=== PATIENT | female | born 1930 | race Caucasian/White ===

== ENCOUNTER 2018-01-15 11:57 | Inpatient (IN) | payer MEDICARE ==
[~2018-01-15] VITALS: Ht 165.1 cm; Wt 59.8 kg
[~2018-01-15 11:57] MED LIST: HYDR50TA3 PO; LISI5TAB7 PO
[2018-01-15 12:26] LABS: BASOPHILS # (AUTO) 0.13 x10^3/uL (0-0.1); BASOPHILS % (AUTO) 2 % (0-1); EOSINOPHILS # (AUTO) 0.09 x10^3/uL (0-0.4); EOSINOPHILS % (AUTO) 1 % (1-7); LYMPHOCYTES # (AUTO) 2.52 x10^3/uL (1-3.4); LYMPHOCYTES % (AUTO) 29 % (22-44); MD NO; MEAN CORPUSCULAR HEMOGLOBIN 32.9 pg (27.0-34.8); MEAN CORPUSCULAR HGB CONC 33.5 g/dL (32.4-35.8); MEAN CORPUSCULAR VOLUME 98.2 fL (80-100); MEAN PLATELET VOLUME 9.7 fL (7.4-10.4); MONOCYTES # (AUTO) 0.41 x10^3/uL (0.2-0.8); MONOCYTES % (AUTO) 5 % (2-9); NEUTROPHILS # (AUTO) 5.53 x10^3/uL (1.8-6.8); NEUTROPHILS % (AUTO) 64 % (42-75); PLATELET COUNT 289 x10^3/uL (130-400); RED BLOOD COUNT 4.12 x10^6/uL (3.82-5.3); RED CELL DISTRIBUTION WIDTH 12.9 % (9.6-15.2)
[2018-01-15] MEDS ORDERED: OMNIPAQUE 350 MG/ML, 100ML BOTTLE ONE (12:31)
[2018-01-15 12:32] LABS: INTERNATIONAL NORMALIZED RATIO 1.05 (0.93-1.1); PROTHROMBIN TIME 10.8 Seconds (9.6-11.5)
[2018-01-15 13:01] LABS: CULTURE INDICATED? NO; MICROSCOPIC NOT IND
[2018-01-15] MEDS: SODIUM CHLORIDE 0.9% 1,000 ML IV ONE ×2 (13:05→14:46)
[2018-01-15] MEDS ORDERED: hydrALAzine 20 MG/ML, 1ML IVPush PRN (13:30)
[2018-01-15] MEDS ORDERED: ONDANSETRON 2MG/ML, 2ML IVPush PRN (13:30)
[2018-01-15] MEDS ORDERED: DOCUSATE 100 MG CAPSULE PO PRN (13:30)
[2018-01-15] MEDS ORDERED: LABETALOL 5MG/ML, 20ML IVPush PRN (13:30)
[2018-01-15] MEDS ORDERED: ACETAMINOPHEN 325 MG TABLET PO PRN (13:30)
[2018-01-15] MEDS ORDERED: ASPIRIN 81 MG TABLET CHEW PO ONE (13:30)
[2018-01-15] MEDS ORDERED: ONDANSETRON ODT 4 MG PO PRN (13:30)
[2018-01-15] MEDS ORDERED: GUAIFENESIN/COD200MG-20MG/10ML LIQUID PO PRN (13:30)
[2018-01-15 13:49] LABS: ANION GAP 8 mmol/L (5-15); CALCIUM 8.8 mg/dL (8.5-10.1); CHLORIDE 102 mmol/L (98-107)
[2018-01-15 14:00] LABS: CREATININE 1.51 mg/dL (0.55-1.02); FREE T4 (FREE THYROXINE) 1.08 ng/dL (0.76-1.46)
[2018-01-15 14:20] VITALS: BP_SYST 125; BP_SYST 127; BP_DIAS 73; BP_DIAS 79
[2018-01-15 14:21] LABS: HEMOGLOBIN A1C 5.3 % (4.2-6.3)
[2018-01-15 14:37] VITALS: BP 112/76
[2018-01-15] MEDS: HEPARIN 5,000 UNITS/ML, 1ML SQ SCH ×2 (14:47→20:17)
[2018-01-15 15:58] VITALS: BP 117/71
[2018-01-15] MEDS ORDERED: SODIUM CHLORIDE 0.9% 1,000 ML IV ONE (18:00)
[2018-01-15] MEDS ORDERED: DEXTROSE 50%, 50ML SYRINGE IVPush PRN (18:00)
[2018-01-15] MEDS ORDERED: GLUCAGON 1 MG IM PRN (18:00)
[2018-01-15] MEDS ORDERED: DEXTROSE 4 GM TAB.CHEW PO PRN (18:00)
[2018-01-15 19:25] VITALS: BP 110/52
[2018-01-15] MEDS: SODIUM CHLORIDE FLUSH 10ML SYR IVF SCH (20:17)
[2018-01-15] MEDS: INSULIN LISPRO 100 UNITS/ML, PEN SQ-INSULIN SCH (20:18)
[2018-01-16 00:19] VITALS: BP 129/77
[2018-01-16 05:35] LABS: ANION GAP 7 mmol/L (5-15); CALCIUM 8.4 mg/dL (8.5-10.1); CHLORIDE 107 mmol/L (98-107); CHOLESTEROL, TOTAL 156 mg/dL (140-239); CREATININE 1.07 mg/dL (0.55-1.02); TRIGLYCERIDES 97 mg/dL (50-200); VLDL CHOLESTEROL 19 mg/dL (0-25)
[2018-01-16 05:37] LABS: CHOL/HDL RATIO 2.5; HDL CHOL % 40 % (28-40); HDL CHOLESTEROL (DIRECT) 63 mg/dL (40-60); LDL CHOLESTEROL,CALCULATED 74 mg/dL (54-169); LDL/HDL RATIO 1.2 (0.5-3.0)
[2018-01-16] MEDS: HEPARIN 5,000 UNITS/ML, 1ML SQ SCH ×3 (06:16→20:22)
[2018-01-16] MEDS: INSULIN LISPRO 100 UNITS/ML, PEN SQ-INSULIN SCH ×4 (07:00→20:22)
[2018-01-16 07:14] VITALS: BP 109/65
[2018-01-16] MEDS ORDERED: GLUCAGON 1 MG IM PRN (08:30)
[2018-01-16] MEDS ORDERED: DEXTROSE 4 GM TAB.CHEW PO PRN (08:30)
[2018-01-16] MEDS ORDERED: DEXTROSE 50%, 50ML SYRINGE IVPush PRN (08:30)
[2018-01-16] MEDS: SODIUM CHLORIDE FLUSH 10ML SYR IVF SCH ×4 (09:00→20:23)
[2018-01-16] MEDS: ASPIRIN 81 MG TABLET CHEW PO/NG SCH (09:23)
[2018-01-16 13:16] VITALS: BP 103/68
[2018-01-16 18:35] VITALS: BP 112/65
[2018-01-16] MEDS ORDERED: ATORVASTATIN 40 MG TABLET PO SCH (21:00)
[2018-01-17 00:46] VITALS: BP 103/67
[2018-01-17 06:09] LABS: CHOL/HDL RATIO 2.2; LDL/HDL RATIO 0.9 (0.5-3.0)
[2018-01-17] MEDS: HEPARIN 5,000 UNITS/ML, 1ML SQ SCH ×2 (06:10→13:39)
[2018-01-17] MEDS: INSULIN LISPRO 100 UNITS/ML, PEN SQ-INSULIN SCH ×3 (07:00→16:00)
[2018-01-17 07:38] VITALS: BP 111/71
[2018-01-17] MEDS: SODIUM CHLORIDE FLUSH 10ML SYR IVF SCH ×2 (08:21→08:22)
[2018-01-17] MEDS: ASPIRIN 81 MG TABLET CHEW PO/NG SCH (08:22)
[2018-01-17 13:54] VITALS: BP 134/75
[2018-01-17] MEDS ORDERED: ASPI-515 PO/NG (15:13)
[2018-01-17] MEDS ORDERED: ATOR10TA PO (15:13)
[2018-01-17] MEDS ORDERED: ONDA4TAB13 PO (15:13)
[2018-01-17] MEDS ORDERED: DOCU-131 PO (15:13)
== END 2018-01-17 17:58 | disposition home or self-care (01) | DRG 682 ==
LOC: ED 13:04 → EDIP 13:05 → 4EST 13:06 → ED 13:24 → 4WST 22:37
PROVIDERS: ADMIT Internal Medicine; ATTEND Internal Medicine
DX: N17.0 Acute kidney failure with tubular necrosis (principal); G93.41 Metabolic encephalopathy; G45.9 Transient cerebral ischemic attack, unspecified; E87.1 Hypo-osmolality and hyponatremia; Q21.1 Atrial septal defect; I95.9 Hypotension, unspecified; I12.9 Hypertensive chronic kidney disease with stage 1 through stage 4 chronic kidney disease, or unspecified chronic kidney disease; N18.9 Chronic kidney disease, unspecified; R73.9 Hyperglycemia, unspecified; Z79.82 Long term (current) use of aspirin; Z79.899 Other long term (current) drug therapy; I08.1 Rheumatic disorders of both mitral and tricuspid valves
CPT/HCPCS: 0399T; 36415; 70450; 70496; 70498; 70551; 80047; 80048; 80061; 81003; 82962; 83036; 83735; 84100; 84439; 84443; 85025; 85610; 85730; 93005; 93306; 93880; 99285; G0378; J1644; Q9967; 92523-GN; J7030